=== PATIENT | male | born 1990 | race Caucasian/White ===

== ENCOUNTER 2019-11-27 14:03 | Outpatient (CLI) | payer BC | END 2019-11-27 14:10 | disposition home or self-care (01) | LOC: LAB 14:03 | DX: R73.09 Other abnormal glucose (principal); Z11.3 Encounter for screening for infections with a predominantly sexual mode of transmission; Z13.220 Encounter for screening for lipoid disorders; Z13.29 Encounter for screening for other suspected endocrine disorder; Z00.01 Encounter for general adult medical examination with abnormal findings ==

== ENCOUNTER → 2020-02-16 11:57 | Outpatient (CLI) | payer BC | END | disposition home or self-care (01) | LOC: LAB 11:57 | DX: R73.09 Other abnormal glucose (principal); Z00.01 Encounter for general adult medical examination with abnormal findings; Z11.3 Encounter for screening for infections with a predominantly sexual mode of transmission; Z13.220 Encounter for screening for lipoid disorders; Z13.29 Encounter for screening for other suspected endocrine disorder; N30.00 Acute cystitis without hematuria; E55.9 Vitamin D deficiency, unspecified; D51.8 Other vitamin B12 deficiency anemias; R74.8 Abnormal levels of other serum enzymes ==